=== PATIENT | male | born 1990 | race African-American/Black ===

== ENCOUNTER 2017-01-14 13:57 | Emergency (ER) | payer OTHER ==
[~2017-01-14 13:57] MED LIST: AUGMENTIN PO; BACTRIM DS TABL1 TA1 PO; IBUPROFEN PO; KEFLEX500 MG PO; LORTAB 5/500 TA1 TA1 PO; NAPROSYN500 MG PO; NO MEDICATIONS; PEN-VEE K; PROTONIX PO; ROBAXIN500 MG PO; SEROQUEL50 M1 PO; VICODIN 5/500 T1 TAB PO; VOLTAREN75 MG PO
== END 2017-01-24 10:03 | disposition home or self-care (01) ==
LOC: CED 13:57
DX: Z53.21 Procedure and treatment not carried out due to patient leaving prior to being seen by health care provider (principal)

== ENCOUNTER 2017-02-02 23:59 | Emergency (ER) | payer OTHER ==
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
== END 2017-02-03 03:31 | disposition home or self-care (01) ==
LOC: CED 23:59
DX: S06.0X9A Concussion with loss of consciousness of unspecified duration, initial encounter (principal); S20.219A Contusion of unspecified front wall of thorax, initial encounter; I10 Essential (primary) hypertension; F17.200 Nicotine dependence, unspecified, uncomplicated; Y04.0XXA Assault by unarmed brawl or fight, initial encounter
CPT/HCPCS: 70450; 71101; 72125; 99284